=== PATIENT | male | born 1970 | race Caucasian/White ===

== ENCOUNTER 2025-06-24 04:37 | Inpatient (IN) | payer OTHER ==
[2025-06-24] MEDS ORDERED: Metoprolol Tartrate 5 MG (5 mL) VIAL ONE (04:54)
[2025-06-24 04:58] LABS: #Basophils 0.05 10x3/uL (0.0-0.2); #Eosinophils 0.03 10x3/uL (0.0-0.7); #Monocytes 1.07 10x3/uL (0.11-0.59); #Neutrophils 9.51 10x3/uL (1.40-6.50); %Basophils 0.4 % (0.0-1.0); %Eosinophils 0.3 % (0.0-10.0); %Lymphocytes 8.9 % (21.0-51.0); %Monocytes 9.1 % (0.0-10.0); %Neutrophils 81.0 % (42.0-75.0); Hematocrit 43.5 % (42.0-52.0); Hemoglobin 14.7 g/dL (14.0-18.0); Mean Corpuscular Hemoglobin 31.7 pg (27.0-31.0); Mean Corpuscular Volume 93.8 fL (78.0-98.0); Platelet Count 193 10x3/uL (130-400); Red Blood Cell (RBC) Count 4.64 mill/uL (4.70-6.10); White Blood Cell (WBC) Count 11.74 10x3/uL (4.8-10.8)
[2025-06-24] MEDS ORDERED: Aspirin Chewable 81 MG TAB ONE (05:03)
[2025-06-24] MEDS ORDERED: Nitroglycerin 2% Ointment 1 INCH/1 GM Packet ONE (05:15)
[2025-06-24 05:20] LABS: ALT (SGPT) 35 U/L (Less than 45); AST (SGOT) 25 U/L (11-34); Albumin 4.1 g/dL (3.1-4.5); Alkaline Phosphatase 38 U/L (40-110); Anion Gap 15 mmol/L (10-20); BUN (Urea Nitrogen) 15 mg/dL (8.4-25.7); Bilirubin, Total 0.9 mg/dL (0.3-1.2); Calc. Creatinine Clearance 0 mL/min (70-130); Calcium 9.2 mg/dL (7.8-10.44); Carbon Dioxide 22 mmol/L (22-29); Chloride 99 mmol/L (98-107); Globulin 2.8 g/dL (2.4-3.5); Glucose 90 mg/dL (70-105); Potassium 4.0 mmol/L (3.5-5.1); Sodium 132 mmol/L (136-145)
[2025-06-24] MEDS ORDERED: Ondansetron PF 4 MG/2 ML Vial IVP PRN (09:03)
[2025-06-24] MEDS: FLU (Fluarix Triv) 25-26 (6MOS UP)/PF 45 MCG/0.5 ML Syringe IM ONE (10:56)
[2025-06-24] MEDS ORDERED: Azithromycin 500 MG in Sodium Chloride 0.9% 250 ML 250 ML IVPB SCH (11:00)
[2025-06-24] MEDS ORDERED: cefTRIAXone\\ROCEPHIN 1 GM in Sodium Chloride 0.9% 100 ML IVPB SCH (11:00)
[2025-06-24] MEDS: Carvedilol 6.25 MG TAB PO SCH ×2 (11:11→16:37)
[2025-06-24] MEDS ORDERED: Heparin 10,000 UNITS/ 10 ML VIAL SLOW IVP SCH (11:15)
[2025-06-24 11:19] VITALS: BMI 27.1
[2025-06-24] MEDS ORDERED: Adenosine 6 mg (2 mL) VIAL ONE (11:27)
[2025-06-24] MEDS ORDERED: Lidocaine 1% (PF) 30 ML VIAL ONE (11:28)
[2025-06-24] MEDS ORDERED: PHENYLEPHRINE-NS 100 MCG/ML 10 ML SYRINGE ONE (11:28)
[2025-06-24] MEDS ORDERED: EPINEPHrine 1 MG/10 ML Abboject SYRINGE ONE (11:28)
[2025-06-24] MEDS ORDERED: Nitroglycerin 50 MG/250 ML BOT 250 ML ONE (11:28)
[2025-06-24] MEDS ORDERED: Heparin 10,000 UNITS/ 10 ML VIAL ONE (11:28)
[2025-06-24 11:46] LABS: Hematocrit 41.1 % (42.0-52.0); Hemoglobin 14.3 g/dL (14.0-18.0); Platelet Count 173 10x3/uL (130-400)
[2025-06-24] MEDS ORDERED: Ondansetron PF 4 MG/2 ML Vial ONE (12:52)
[2025-06-24] MEDS ORDERED: Iopamidol-370 76% 500 ML MDV (1 ML CHARGE) ONE (15:07)
[2025-06-24] MEDS: Azithromycin 500 MG in Sodium Chloride 0.9% 250 ML 250 ML IVPB SCH (16:35)
[2025-06-24] MEDS: cefTRIAXone\\ROCEPHIN 1 GM in Sodium Chloride 0.9% 100 ML IVPB SCH (16:36)
[2025-06-24] MEDS: Calcium Carbonate 500 MG ChewTAB PO SCH (17:25)
[2025-06-24] MEDS: Acetaminophen 325 MG TAB PO PRN (17:25)
[2025-06-24] MEDS: Rosuvastatin 20 MG TAB PO SCH (20:10)
[2025-06-24] MEDS: Mupirocin 1 GM TUBE NASAL DECOLONIZATION NASAL SCH (20:10)
[2025-06-24] MEDS: Melatonin 3 MG TAB PO PRN (20:52)
[2025-06-25 03:01] LABS: #Basophils Less than 0.03 10x3/uL (0.0-0.2); #Eosinophils 0.06 10x3/uL (0.0-0.7); #Monocytes 0.86 10x3/uL (0.11-0.59); #Neutrophils 5.49 10x3/uL (1.40-6.50); %Basophils 0.3 % (0.0-1.0); %Eosinophils 0.8 % (0.0-10.0); %Lymphocytes 10.5 % (21.0-51.0); %Monocytes 11.9 % (0.0-10.0); %Neutrophils 76.1 % (42.0-75.0); Hematocrit 37.5 % (42.0-52.0); Hemoglobin 12.6 g/dL (14.0-18.0); Mean Corpuscular Hemoglobin 31.7 pg (27.0-31.0); Mean Corpuscular Volume 94.2 fL (78.0-98.0); Platelet Count 158 10x3/uL (130-400); Red Blood Cell (RBC) Count 3.98 mill/uL (4.70-6.10); White Blood Cell (WBC) Count 7.22 10x3/uL (4.8-10.8)
[2025-06-25 03:49] LABS: ALT (SGPT) 39 U/L (Less than 45); AST (SGOT) 129 U/L (11-34); Albumin 3.1 g/dL (3.1-4.5); Alkaline Phosphatase 34 U/L (40-110); Anion Gap 14 mmol/L (10-20); BUN (Urea Nitrogen) 11 mg/dL (8.4-25.7); Bilirubin, Total 0.6 mg/dL (0.3-1.2); Calc. Creatinine Clearance 125 mL/min (70-130); Calcium 8.0 mg/dL (7.8-10.44); Carbon Dioxide 21 mmol/L (22-29); Cardiac Risk 1.7 (Less than 4.5); Chloride 104 mmol/L (98-107); Cholesterol 84 mg/dl (< 200 Desired); Globulin 2.5 g/dL (2.4-3.5); Glucose 104 mg/dL (70-105); HDL Cholesterol 49 mg/dL (>60 Neg Risk); LDL Cholesterol, Calculated 20 mg/dL; Potassium 3.7 mmol/L (3.5-5.1); Sodium 135 mmol/L (136-145); Triglycerides 77 mg/dL (Less than 150)
[2025-06-25] MEDS: Senokot S 8.6-50 MG TAB PO PRN (08:00)
[2025-06-25] MEDS: Aspirin Chewable 81 MG TAB PO SCH (08:01)
[2025-06-25] MEDS: Apixaban 5 MG TAB PO SCH (08:48)
[2025-06-25] MEDS ORDERED: Enoxaparin 40 MG (0.4 mL) SYRINGE SC SCH (09:00)
[2025-06-25] MEDS: Benzonatate 100 MG CAP PO PRN (18:27)
[2025-06-26 04:49] LABS: #Basophils 0.03 10x3/uL (0.0-0.2); #Eosinophils 0.18 10x3/uL (0.0-0.7); #Monocytes 0.74 10x3/uL (0.11-0.59); #Neutrophils 4.48 10x3/uL (1.40-6.50); %Basophils 0.5 % (0.0-1.0); %Eosinophils 2.8 % (0.0-10.0); %Lymphocytes 15.1 % (21.0-51.0); %Monocytes 11.5 % (0.0-10.0); %Neutrophils 69.9 % (42.0-75.0); Hematocrit 35.9 % (42.0-52.0); Hemoglobin 12.0 g/dL (14.0-18.0); Mean Corpuscular Hemoglobin 31.6 pg (27.0-31.0); Mean Corpuscular Volume 94.5 fL (78.0-98.0); Platelet Count 157 10x3/uL (130-400); Red Blood Cell (RBC) Count 3.80 mill/uL (4.70-6.10); White Blood Cell (WBC) Count 6.41 10x3/uL (4.8-10.8)
[2025-06-26 04:56] LABS: Anion Gap 13 mmol/L (10-20); BUN (Urea Nitrogen) 7 mg/dL (8.4-25.7); Calc. Creatinine Clearance 137 mL/min (70-130); Calcium 7.8 mg/dL (7.8-10.44); Carbon Dioxide 21 mmol/L (22-29); Chloride 110 mmol/L (98-107); Glucose 90 mg/dL (70-105); Potassium 3.8 mmol/L (3.5-5.1); Sodium 140 mmol/L (136-145)
[2025-06-26] MEDS: Carvedilol 25 MG TAB PO SCH (10:01)
[2025-06-26 11:39] VITALS: BP 152/95; TEMP 98.7
[2025-06-26] MEDS ORDERED: Carvedilol 25 MG TAB PO SCH (17:00)
== END 2025-06-26 12:35 | disposition home or self-care (01) | DRG 853 ==
LOC: ERS 04:37 → OBS 07:16 → CCU 12:51 → 2NO 06-25 10:42 → OBSVTOIN 06-25 10:56
PROVIDERS: ADMIT Family Medicine; ATTEND Internal Medicine
PROC: 3E03329 Introduction of Other Anti-infective into Peripheral Vein, Percutaneous Approach (ICD-10-PCS; principal; 2025-06-25)
PROC: 02703ZZ Dilation of Coronary Artery, One Artery, Percutaneous Approach (ICD-10-PCS; 2025-06-25)
PROC: 4A023N7 Measurement of Cardiac Sampling and Pressure, Left Heart, Percutaneous Approach (ICD-10-PCS; 2025-06-25)
PROC: B2101ZZ Fluoroscopy of Single Coronary Artery using Low Osmolar Contrast (ICD-10-PCS; 2025-06-25)
PROC: B2151ZZ Fluoroscopy of Left Heart using Low Osmolar Contrast (ICD-10-PCS; 2025-06-25)
DX: A41.9 Sepsis, unspecified organism (principal); I21.4 Non-ST elevation (NSTEMI) myocardial infarction; J18.9 Pneumonia, unspecified organism; I47.20 Ventricular tachycardia, unspecified; I48.0 Paroxysmal atrial fibrillation; Z79.899 Other long term (current) drug therapy; Z79.01 Long term (current) use of anticoagulants
CPT/HCPCS: 36415; 71045; 71275; 74174; 80048; 80053; 80061; 83880; 84443; 84484; 85025; 85347; 85730; 87040; 87428; 92941; 93005; 93010; 93306; 93458; 93798; 94760; 96374; 96375; 96376; 99152; 99153; C1769; C1887; C1894; C9606; G0378; J0153; J0165; J0456; J0461; J0696; J1644; J2003; J2250; J2270; J2272; J2405; J3010; J7030; J7050; Q9967